=== PATIENT | female | born 1995 | race Caucasian/White ===

== ENCOUNTER 2016-05-22 20:30 | Emergency (ER) | payer OTHER ==
[~2016-05-22] VITALS: Ht 157.5 cm; Wt 48.0 kg
[2016-05-22] MEDS ORDERED: FLUO20CA35 PO (20:48)
[2016-05-22] MEDS ORDERED: BCPILLS PO (20:48)
[2016-05-22 20:54] VITALS: TEMP 36.5; Ht 157.5 cm; Wt 48.0 kg
[2016-05-22 21:33] LABS: BUN/CREATININE RATIO 7.7 (10-20); CALCIUM 8.6 mg/dl (8.5-10.1); CREATININE 0.7 mg/dl (0.60-1.20); POTASSIUM 3.3 mmol/L (3.5-5.1)
[2016-05-22 22:46] VITALS: BP 111/70; PULSE 92; O2SAT 100
--- NOTE | 2016-05-22 23:58 | EMERGENCY ROOM VISIT NOTE ---
History Report prepared by Tracy: Rosalie Oliver Under the Supervision of: Dr. Darya Marshall D.O. First contact with patient: 20:33 Chief Complaint: ALCOHOL OVERDOSE Stated Complaint: ETOH History of Present Illness The patient is a 20 year old female who presents to the Emergency Room after drinking alcohol today. She was found alone outside on campus by people passing by and was brought to the ED by EMS. She reports that she was drinking tequila. She denies being cold or in pain. She takes medication for anxiety. She denies any other health problems. She denies taking any other drugs. Her LNMP was this week. History is limited due to the patient being intoxicated. Source of History: patient History Limited By: intoxication Onset: [employer] Position: other (global) Associated Symptoms: No chills Note: Pt denies being in pain. Review of Systems ROS unobtainable due to patient's alcohol intoxication. Past Medical & Surgical Medical Problems: (1) Anxiety Family History Family history was unable to be obtained because of the patient's alcohol intoxication. Social History Alcohol Use: occasionally Housing Status: lives with roommate Occupation Status: [employer] student Current/Historical Medications Scheduled Control Pills ( Control Pills), 1 TAB PO DAILY Fluoxetine (Prozac), 20 MG PO DAILY Physical Exam Vital Signs Date Time Temp Pulse Resp B/P Pulse Ox O2 Delivery O2 Flow Rate FiO2 05/22/16 22:46 92 20 111/70 100 05/22/16 21:36 74 05/22/16 20:54 36.5 85 19 116/81 95 Room Air Physical Exam General: tearful and smells of alcohol. HEENT: Head - normocephalic and atraumatic Pupils 3 mm and sluggishly reactive to light. Extraocular eye muscles are intact, and sclera are anicteric. Nose - moist nasal mucosa without discharge. Mouth - moist buccal mucosa. Oropharynx is nonerythematous and there is no tonsillar exudate or edema noted. Neck: Supple; no JVD, nuchal rigidity, cervical lymphadenopathy. Heart: Regular rate and rhythm. There is a normal S1 and S2 with no murmurs, clicks, or gallops appreciated. Lungs: Clear to auscultation bilaterally with no wheezes, rales, or rhonchi. Abdomen: Soft, completely nontender, nondistended, with good bowel sounds. There are no palpable pulsatile masses or hepatosplenomegaly. There is no guarding, rigidity, or rebound noted. Extremities: No evidence of cyanosis, clubbing, or edema. There are easily palpable peripheral pulses. Skin: warm and dry with good turgor and no rashes. Medical Decision & Procedures Laboratory Results 05/22/16 21:05 Test 05/22/16 21:05 Anion Gap 8.0 mmol/L (3-11) Est Creatinine Clear Calc Drug Dose 96.3 ml/min Estimated GFR () 143.5 Estimated GFR (Non- 123.9 BUN/Creatinine Ratio 7.7 (10-20) Calcium Level 8.6 mg/dl (8.5-10.1) Ethyl Alcohol mg/dL 332.0 mg/dl (0-3) Laboratory results per my review. ED Course 2036: The patient was evaluated in room B12. A complete history and physical examination were performed. labs were drawn as above. The patient was observed on the counselor marriage and family and pulse oximeter. 2210: I reevaluated the patient. Her 6 sober roommates are present. I discussed with them the results and treatment plan. They have agreed to watch over her closely. She will be discharged home. Medical Decision The patient is a 20 year old female who presents to the ED with alcohol intoxication. Differential diagnosis includes alcohol overdose, hypothermia, drug intoxication, hypoglycemia, head injury. EtOH 332. This is a 20-year-old female patient presents to the emergency department after being found stumbling around outside in the snow. Patient has alcohol intoxication. She never lost consciousness while here in the emergency department she continued to communicate with nursing staff and then her roommates. I spent some time talking to her about the hazards of drinking such excessive alcohol. The roommates were willing to take her home and watch over her closely until she was completely sober. I explained that they would need to stay awake if she were to fall asleep overnight to ensure that she did not have respiratory depression or vomit with aspiration. Impression Primary Impression: Alcohol overdose Scribe Attestation The scribe's documentation has been prepared under my direction and personally reviewed by me in its entirety. I confirm that the note above accurately reflects all work, treatment, procedures, and medical decision making performed by me. Departure Information Dispostion Home / Self-Care Forms HOME CARE DOCUMENTATION FORM, IMPORTANT VISIT INFORMATION Patient Instructions ED Overdose Alcohol, My [facility] Additional Instructions Rest. Take plenty of clear liquids Avoid such excessive alcohol use in the future Your friends have agreed to watch over you tonight to keep you safe.
== END 2016-05-22 22:48 | disposition home or self-care (01) ==
LOC: C.EDB 20:31
DX: T51.0X1A Toxic effect of ethanol, accidental (unintentional), initial encounter (principal); F10.129 Alcohol abuse with intoxication, unspecified; Y90.8 Blood alcohol level of 240 mg/100 ml or more; F41.9 Anxiety disorder, unspecified; Z79.3 Long term (current) use of hormonal contraceptives; Z79.899 Other long term (current) drug therapy